=== PATIENT | female | born 1970 | race Caucasian/White ===

== ENCOUNTER 2017-06-09 05:00 | Inpatient (IN) | payer OTHER ==
--- NOTE | ~2017-06-09 | CO ---
Unit #: [id number] #: [id number] Patient: RYAN ALEMAN [id number] [place] [address] [id number] I MR#: [id number] NAME: RYAN ALEMAN ROOM: P131 Age: 46 Sex: F Admission Date: 06/09/2017 : 1970 Attending Physician: Gigi Mcelroy M.D. Primary Care Physician: Primary Care Physician No Consultation Date: 06/09/2017 CONSULTATION REPORT SUBJECTIVE The patient is a 46-year-old, female who was diagnosed with breast cancer in 08/2016. The patient has had chemotherapy and has had a lumpectomy. She states that she is to start radiation in 06/2017. The patient has been maintained on tamoxifen. OBJECTIVE GENERAL: The patient is awake and alert, in no acute distress. VITAL SIGNS: Stable. CHEST: Clear. CARDIOVASCULAR: S1 and S2. SKIN: Warm and dry, intact. ASSESSMENT Breast cancer. PLAN At this time, we will continue the patient on her home dose of tamoxifen. The patient will need to follow up with her oncologist when she is discharged. She tells me that she is to start radiation in 06/2017. Please note, I did look at her CT scan which was normal from outlying facility and her EKG showed sinus tachycardia. Dictated by... Radha Angulo A.P.R.N. for Abdi Greenwood M.D. AM/babita TD: 06/09/2017 15:29 JOB #: [id number] CONSULTATION REPORT Page 1 of 1 X Radha Angulo APRN X CONSULTATION REPORT
--- NOTE | ~2017-06-09 | PN ---
Unit #: [id number] #: [id number] Patient: IRENE ALEMAN [id number] [facility] [address] [place] [address] [id number] MR#: [id number] NAME: IRENE ALEMAN ROOM: P131 Age: 46 Sex: F Admission Date: 06/09/2017 : 1970 Attending Physician: Gigi Mcelroy M.D. Admitting Physician: Gigi Mcelroy M.D. Primary Care Physician: Primary Care Physician Kim THOMAS PROGRESS NOTES DATE 06/11/2017 DISCUSSION Irene is showing some improvement today. Her mood is better and calmer with a brighter affect. She is alert and fully oriented. Her memory and concentration are intact. Her thought processes are logical with no active psychosis. She is able to contract for safety. ASSESSMENT Posttraumatic stress disorder, chronic. PLAN We will schedule discharge for tomorrow with followup through her primary care physician and oncologist. Dictated by... Clifford DavisH/bzlisbeth TD: 06/13/2017 10:29 JOB #: [id number] [facility] PROGRESS NOTES Page 1 of 1 X Gigi Mcelroy MD PROGRESS NOTE
--- NOTE | ~2017-06-09 | DS ---
Unit #: [id number] #: [id number] Patient: IRENE ALEMAN [id number] [facility] [address] [place] [address] [id number] I MR#: [id number] NAME: IRENE ALEMAN ROOM: P131 Age: 46 Sex: F Admission Date: 06/09/2017 : 1970 Discharge Date: 06/12/2017 Attending Physician: Gigi Mcelroy M.D. Primary Care Physician: Primary Care Physician No DISCHARGE SUMMARY REASON FOR ADMISSION Irene is a 46-year-old woman, who reported increasing dysphoria, hopelessness, and anxiety in the outpatient setting. She had apparently been off her medications for some time and reported that she was having active auditory hallucinations. She also had suicidal ideation and was admitted for stabilization. DIAGNOSTIC STUDIES LABORATORY RESULTS: Please see hospital chart. HOSPITAL COURSE The patient was admitted and placed on suicide precautions. Her gabapentin was continued together with Seroquel which was increased to 300 mg at bedtime for auditory hallucinations and Cymbalta was increased to 60 mg daily for depression. Ativan was provided on an as needed basis, but was told this would be in the hospital only. She rapidly improved and participated appropriately in unit groups and activities. On the date of discharge, she requested to be discharged from the hospital, because the need for oncology followup in the near future. DISCHARGE DIAGNOSES AXIS I: Schizophrenia versus schizoaffective disorder. AXIS II: No diagnosis. AXIS III: Breast cancer and hypertension. AXIS IV: AXIS V: DISCHARGE INSTRUCTIONS Follow up with primary care physician and oncologist of choice. DISCHARGE MEDICATIONS Cymbalta 60 mg daily for depression, Seroquel 300 mg at bedtime for psychotic features, gabapentin 600 mg t.i.d. for anxiety, trazodone 50 mg at bedtime for insomnia. Primary care medicines were hydrocodone 10/325 every 8 hours as needed for pain and tamoxifen citrate 20 mg daily for breast cancer. CONDITION AT DISCHARGE Improved. PROGNOSIS Fair to good. Unit #: [id number] #: [id number] Patient: IRENE ALEMAN DIET AND ACTIVITY Per primary care doctor. Dictated by... Gigi Mcelroy M.D. MR/babita TD: 06/13/2017 18:35 JOB #: [id number] DISCHARGE SUMMARY Page 1 of 1 X Gigi Mcelroy MD DISCHARGE SUMMARY
--- NOTE | ~2017-06-09 | HP ---
Unit #: [id number] #: [id number] Patient: RYAN ALEMAN [id number] [facility] [address] [place] [address] [id number] I MR#: [id number] NAME: RYAN ALEMAN ROOM: P131 Age: 46 Sex: F Admission Date: 06/09/2017 : 1970 Attending Physician: Gigi Mcelroy M.D. Admitting Physician: Gigi Mcelroy M.D. Primary Care Physician: Primary Care Physician No HISTORY AND PHYSICAL HISTORY OF PRESENT ILLNESS The patient is a 46-year-old female who has been admitted to [facility] for anxiety and depression. PAST MEDICAL HISTORY 1. Breast cancer. 2. Hypertension. 3. Schizophrenia. PAST SURGICAL HISTORY Lobectomy. ALLERGIES No known allergies. HOME MEDICATIONS 1. Trazodone 50 mg p.o. at night. 2. Gabapentin 600 mg p.o. q. 8 hours 3. Ciprofloxacin 500 mg p.o. b.i.d., discontinue on June 11. 4. Cymbalta 30 mg p.o. daily. 5. Hydrocodone 10/325 mg 1 tab p.o. q. 8 hours p.r.n. pain. 6. Seroquel 200 mg p.o. at night. 7. Tamoxifen citrate 20 mg p.o. daily. FAMILY HISTORY Noncontributory. SOCIAL HISTORY Endorses tobacco, alcohol, and marijuana use. REVIEW OF SYSTEMS CONSTITUTIONAL: Denies fever or chills. HEENT: Denies sore throat, ear pain, or runny nose. CARDIOVASCULAR: Denies chest pain, irregular heart rhythm, or palpitations. CHEST: Denies shortness of breath or cough. No hemoptysis. GI: Denies nausea, vomiting, diarrhea, or chronic constipation. ENDOCRINE: Denies increased thirst or urination. Denies recent weight loss or gain. : Denies dysuria, frequency, or hematuria. SKIN: Denies any rashes. HEMATOLOGIC: Denies history of increased bleeding or bruising. MUSCULOSKELETAL: Denies any hot, swollen joints. No generalized pain. Unit #: [id number] #: [id number] Patient: RYAN ALEMAN NEUROLOGIC: Denies problems with speech or vision (1) __ denies loss of bowel or bladder control. PHYSICAL EXAMINATION GENERAL: The patient is awake, in no acute distress. VITAL SIGNS: Temperature 98.7, heart rate 84, respirations 17, blood pressure 131/85. She is 5 feet 3 and weighs 156 pounds. HEENT: Head is atraumatic, normocephalic. Pupils are equal, round, and reactive to light. Extraocular movements are intact. No drainage from ears or nose. NECK: Supple. Trachea is midline. HEART: Regular rate and rhythm. LUNGS: Clear. ABDOMEN: Soft, nontender, and nondistended. : Not done. SKIN: Warm, dry without any unusual rash or lesions. EXTREMITIES: No clubbing, cyanosis, or edema. NEUROLOGIC: Within normal limits. Cranial nerves II through XII are intact. No focal deficits. Sensory/motor function: Grossly normal. Moves all extremities well. Coordination: Gait normal. Deep tendon reflexes intact. IMPRESSION Psychiatric admission. RECOMMENDATIONS PSYCHIATRIC: Per psychiatrist. MEDICAL: I seen no contraindication to patient participating in the facility activities. MEDICAL PROGNOSIS Fair. MEDICAL CONDITION Stable. Dictated by... Radha Angulo A.P.R.N. AM/irene TD: 06/09/2017 15:05 JOB #: [id number] Unit #: [id number] #: [id number] Patient: RYAN ALEMAN HISTORY AND PHYSICAL Page 1 of 1 X Radha Angulo ASSISTIVE TECHNOLOGY SPECIALIST X HISTORY AND PHYSICAL
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
== END 2017-06-12 12:09 | disposition home or self-care (01) | DRG 885 ==
LOC: P1S 10:48
DX: F25.0 Schizoaffective disorder, bipolar type (principal); C50.919 Malignant neoplasm of unspecified site of unspecified female breast; R45.851 Suicidal ideations; I10 Essential (primary) hypertension; G89.29 Other chronic pain; F43.12 Post-traumatic stress disorder, chronic